=== PATIENT | female | born 1955 | race Caucasian/White ===

== ENCOUNTER → 2016-08-12 | Outpatient (CLI) | payer BC ==
[~2016-08-12] MED LIST: ALPR-411 PO; FLNIN/ NAE; FLUO20CA35 PO; MELO7.5T5 PO
== END | disposition home or self-care (01) ==
LOC: C.LABSPEC 15:46
PROVIDERS: ATTEND Internal Medicine
DX: R39.9 Unspecified symptoms and signs involving the genitourinary system (principal)

== ENCOUNTER → 2016-09-13 | Outpatient (CLI) | payer BC | END | disposition home or self-care (01) | LOC: C.LABSPEC 17:08 | PROVIDERS: ATTEND Nurse Practitioner Family | DX: N95.2 Postmenopausal atrophic vaginitis (principal) ==

== ENCOUNTER → 2016-09-26 | Outpatient (CLI) | payer BC | END | disposition home or self-care (01) | LOC: C.LABBC 12:26 | PROVIDERS: ATTEND Nurse Practitioner Family | DX: R39.9 Unspecified symptoms and signs involving the genitourinary system (principal); N39.0 Urinary tract infection, site not specified ==

== ENCOUNTER → 2017-01-30 | Outpatient (CLI) | payer BC ==
--- NOTE | 2017-01-30 09:15 | DIAGNOSTIC IMAGING REPORT ---
ULTRASOUND KIDNEYS AND BLADDER CLINICAL HISTORY: Recurrent urinary tract infection. COMPARISON STUDY: Abdominal CT dated 10/20/2008. TECHNIQUE: Real-time, grayscale, and color flow sonography of the kidneys and bladder is performed. Images are reviewed in the transverse and longitudinal planes. FINDINGS: Kidneys: The kidneys are normal in size and echotexture. The right kidney measures 10.7 x 3.9 x 4.1 cm and the left kidney measures 11.1 x 3.8 x 4.8 cm. There is no hydronephrosis. No shadowing renal calculi are identified. There is no sonographic evidence of contour deforming renal mass lesion. No perinephric fluid is identified. Bladder: The bladder is normal in appearance. Bilateral ureteral jets were seen. IMPRESSION: Unremarkable sonographic assessment of the kidneys and bladder. Electronically signed by: Haresh Cristina M.D. 01/30/2017 9:14 AM Dictated Date/Time: 01/30/2017 9:13 AM
== END ==
LOC: C.ULTR 08:32
PROVIDERS: ATTEND Nurse Practitioner Family
DX: N39.0 Urinary tract infection, site not specified (principal)

== ENCOUNTER → 2017-02-13 | Outpatient (CLI) | payer BC | END | disposition home or self-care (01) | LOC: C.LABSPEC 17:10 | PROVIDERS: ATTEND Urology | DX: N39.0 Urinary tract infection, site not specified (principal) ==

== ENCOUNTER 2018-11-24 10:35 | Observation (INO) ==
[2018-11-24] MEDS ORDERED: MoRPHine SULFATE 4 MG/ML 1 ML CARP\\VIAL IV STA ×2 (10:47→13:34)
[2018-11-24] MEDS ORDERED: ONDANSETRON INJ 2 MG/ML 2 ML VIAL IV STA (10:47)
--- NOTE | 2018-11-24 10:55 | Emergency Department Note ---
History of Present Illness General Chief complaint: Fall Stated complaint: fall/ back pain Time Seen by Provider: 11/24/18 10:37 History of Present Illness Maximum Pain Intensity: 10 This is a 63-year-old female that presents to the emergency department via ambulance with complaints of "fall/back pain". The patient states earlier today around 6 AM she was at her home, when she was descending a flight of stairs when a dog ran by her causing her to fall and she slipped landing on her buttocks and then slid down 6 steps on her back. She notes pain now in the posterior right mid back favoring the rib region. She rates the overall pain currently as a 10/10. It is worse with movement. She tried ibuprofen 2 tablets earlier with minimal relief. She is tried also icing the region with minimal relief. She denies striking the head or loss of consciousness. She denies any lower ex tremity weakness, bowel or bladder incontinence, numbness or tingling in genital region. Home Medications Home Medications Medication Instructions Recorded Confirmed Type alprazolam 0.5 mg tablet 0.5 mg PO DAILY PRN #15 tab 10/04/18 11/24/18 Rx fluoxetine 10 mg tablet 5 mg PO DAILY #45 tab 10/04/18 11/24/18 Rx methenamine hippurate 1 g PO HS 11/24/18 11/24/18 History Allergies Allergy/AdvReac Type Severity Reaction Status Date / Time gluten Allergy Unknown GI SYMPTOMS Unverified 11/24/18 11:34 codeine AdvReac Mild VOMITING Unverified 11/24/18 11:34 Past Med/Surg History Medical History Low back pain (Chronic) Depression (Chronic) Gluten enteropathy (Chronic) History of peptic ulcer (Chronic) Hyperlipidemia (Chronic) Prediabetes (Chronic) Prolonged QT interval (Chronic) Vitamin D insufficiency (Chronic) Surgical History History of tubal ligation (Chronic) Social History Preferred Language: Croatian 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 Beliefs That Will Affect Care: None Current Living Situation: Spouse Other Information That Helps Us Care for You: No Feels Safe at Home: Yes Safety Concerns: Feels Safe At This Time Smoking Status: Never smoker Hx Alcohol Use: Yes Alcohol type: wine Hx Substance Use: No Review of Systems A total of 10 systems reviewed and were otherwise negative Physical Exam Vital Signs Vital Signs - 24 hr 11/24/18 10:43 11/24/18 12:39 11/24/18 14:07 Temperature 36.6 C Temperature Source Oral Sepsis Recent Fever Within 48 Hours No Sepsis Action Taken by Nursing No Action Required Pulse Rate 68 Pulse Rate [Apical] 63 69 Respiratory Rate 18 18 18 Respiratory Depth Normal Blood Pressure 133/86 Blood Pressure [Left Arm] 132/70 128/79 Blood Pressure Mean 101 Blood Pressure Mean [Left Arm] 90 95 Pulse Oximetry 97 96 98 Oxygen Delivery Method Room Air Room Air Room Air VITAL SIGNS - Vital signs and nursing notes were reviewed. Stable and febrile. GENERAL - 63-year-old female appearing her stated age who is in no acute distress. Communicates well with provider and answers questions appropriately. SKIN - Without rashes. No meningeal or petechial rash. The skin overlying the patient's back is unremarkable. No break in the integument. No bruising. HEAD - NC/AT. EYES - PERRL with EOMI bilaterally. Sclera anicteric. EARS - No deformities of external structures noted on gross examination bilaterally. NOSE - Midline and without cyanosis. No epistaxis or purulent drainage noted. MOUTH/OROPHARYNX - Without perioral cyanosis. NECK - Neck with FROM. No C-spine tenderness. No nuchal rigidity. LUNGS - Chest wall symmetric without accessory muscle use, intercostals retractions, or central cyanosis. Normal vesicular breath sounds CTA B/L. No wheezes, rales, or rhonchi appreciated. CARDIAC - RRR with S1/S2. No murmur, rubs, or gallops appreciated. ABDOMEN - Abdominal contour normal without pulsations or visible masses. BS normoactive all four quadrants. No tenderness, palpable masses, hepatosplenomegaly, or ascites noted. EXTREMITIES - No clubbing or peripheral cyanosis. No pretibial edema present. +5/5 strength noted in UE/LE bilaterally. MUSCULOSKELETAL: There is reproducible tenderness overlying the ends right-sided thoracic spine extending into the posterior ribs and soft tissue regions. No C- spine, or L-spine tenderness. NEUROLOGIC - Cranial nerves II through XII grossly intact. PSYCH - A&Ox3 and cooperates fully with examiner. Pt is very pleasant and interacts well with examiner. Course Administered Medications Discontinued Medications Promethazine HCl (Phenergan) 12.5 mg in 50.5 mls @ 202 mls/hr IV NOW STA Stop: 11/24/18 14:14 Last Infusion: 11/24/18 14:26 Dose: 0 mls/hr Documented by: [id number] Admin: 11/24/18 14:09 Dose: 202 mls/hr Documented by: [id number] Ioversol (Optiray 320 100ml) 95 ml IV ONCE PRN PRN Reason: Interaction Checking Stop: 11/28/18 11:57 Last Admin: 11/24/18 11:59 Dose: 95 ml Documented by: [id number] Morphine Sulfate (Morphine Sulfate) 4 mg IV NOW STA Stop: 11/24/18 10:48 Last Admin: 11/24/18 10:55 Dose: 4 mg Documented by: [id number] Morphine Sulfate (Morphine Sulfate) 4 mg IV NOW STA Stop: 11/24/18 13:35 Last Admin: 11/24/18 14:09 Dose: 4 mg Documented by: [id number] Ondansetron HCl (Zofran) 4 mg IV NOW STA Stop: 11/24/18 10:48 Last Admin: 11/24/18 10:55 Dose: 4 mg Documented by: [id number] Ondansetron HCl (Zofran) Confirm Administered Dose 4 mg .ROUTE .STK-MED ONE Stop: 11/24/18 13:41 Last Admin: 11/24/18 14:00 Dose: Not Given Documented by: [id number] Medical Decision Making Laboratory Data Result diagrams: 11/24/18 10:54 11/24/18 10:54 Lab Results 11/24/18 11/24/18 11/24/18 Range/Units 10:54 10:54 11:05 WBC 8.53 (4.8-10.8) K/uL RBC 4.71 (4.2-5.4) M/uL Hgb 12.0 (12.0-16.0) g/dL POC Hgb 12.6 (12.0-16.0) g/dl Hct 36.8 L (37-47) % POC Hct 37 (37-47) % MCV 78.1 L (80-100) fL MCH 25.5 (25-34) pg MCHC 32.6 (32-36) g/dL RDW Std Deviation 45.2 (36.4-46.3) fL RDW Coeff of Janice 15.7 H (11.5-14.5) % Plt Count 245 (130-400) K/uL MPV 9.0 (7.4-10.4) fL Immature Gran % (Auto) 0.2 % Neut % (Auto) 76.1 % Lymph % (Auto) 14.2 % [place] % (Auto) 6.8 % Eos % (Auto) 2.5 % Baso % (Auto) 0.2 % Immature Gran # (Auto) 0.02 (0.00-0.02) K/uL Neut # (Auto) 6.49 (1.4-6.5) K/uL Lymph # (Auto) 1.21 (1.2-3.4) K/uL [place] # (Auto) 0.58 (0.11-0.59) K/uL Eos # (Auto) 0.21 (0-0.5) K/uL Baso # (Auto) 0.02 (0-0.2) K/uL POC Sodium 141 (135-144) mEq/L Sodium 143 (136-145) mmol/L POC Potassium 4.1 (3.3-5.0) mEq/L Potassium 4.0 (3.5-5.1) mmol/L POC Chloride 107 (101-112) mEq/L Chloride 111 H (98-107) mmol/L Carbon Dioxide 26 (21-32) mmol/L POC Total CO2 23 L (24-31) mEq/l Anion Gap 6.0 (3-11) POC Anion Gap 17.0 (16-25) mmol/L POC BUN 19 H (7-18) mg/dl BUN 18 (7-18) mg/dl Creatinine 0.79 (0.6-1.2) mg/dl POC Creatinine 0.8 (0.6-1.3) mg/dl Est Cr Clr Drug Dosing Not Reportable Est GFR ( Amer) 93.0 Est GFR (Non-Af Amer) 80.2 BUN/Creatinine Ratio 23.1 H (10-20) Glucose 96 (70-99) mg/dl POC Glucose (other) 99 (70-99) mg/dl Calcium 8.4 L (8.5-10.1) mg/dl POC Ioniz Calcium [place] 1.19 (1.12-1.32) mmol/l Total Bilirubin 0.3 (0.2-1) mg/dl AST 18 (15-37) U/L ALT 31 (12-78) U/L Alkaline Phosphatase 71 (45-117) U/L Total Protein 6.5 (6.4-8.2) gm/dl Albumin 3.5 (3.4-5.0) gm/dl Globulin 3.0 (2.5-4.0) gm/dl Albumin/Globulin Ratio 1.2 (0.9-2) Urine Color Urine Appearance (Clear) Urine pH (4.5-7.5) Ur Specific [place] (1.000-1.030) Urine Protein (Negative) Urine Glucose (UA) (Negative) Urine Ketones (Negative) Urine Blood (Negative) Urine Nitrite (Negative) Urine Bilirubin (Negative) Urine Urobilinogen (Negative) Ur Leukocyte Esterase (Negative) 11/24/18 Range/Units 13:30 WBC (4.8-10.8) K/uL RBC (4.2-5.4) M/uL Hgb (12.0-16.0) g/dL POC Hgb (12.0-16.0) g/dl Hct (37-47) % POC Hct (37-47) % MCV (80-100) fL MCH (25-34) pg MCHC (32-36) g/dL RDW Std Deviation (36.4-46.3) fL RDW Coeff of Janice (11.5-14.5) % Plt Count (130-400) K/uL MPV (7.4-10.4) fL Immature Gran % (Auto) % Neut % (Auto) % Lymph % (Auto) % [place] % (Auto) % Eos % (Auto) % Baso % (Auto) % Immature Gran # (Auto) (0.00-0.02) K/uL Neut # (Auto) (1.4-6.5) K/uL Lymph # (Auto) (1.2-3.4) K/uL [place] # (Auto) (0.11-0.59) K/uL Eos # (Auto) (0-0.5) K/uL Baso # (Auto) (0-0.2) K/uL POC Sodium (135-144) mEq/L Sodium (136-145) mmol/L POC Potassium (3.3-5.0) mEq/L Potassium (3.5-5.1) mmol/L POC Chloride (101-112) mEq/L Chloride (98-107) mmol/L Carbon Dioxide (21-32) mmol/L POC Total CO2 (24-31) mEq/l Anion Gap (3-11) POC Anion Gap (16-25) mmol/L POC BUN (7-18) mg/dl BUN (7-18) mg/dl Creatinine (0.6-1.2) mg/dl POC Creatinine (0.6-1.3) mg/dl Est Cr Clr Drug Dosing Est GFR ( Amer) Est GFR (Non-Af Amer) BUN/Creatinine Ratio (10-20) Glucose (70-99) mg/dl POC Glucose (other) (70-99) mg/dl Calcium (8.5-10.1) mg/dl POC Ioniz Calcium [place] (1.12-1.32) mmol/l Total Bilirubin (0.2-1) mg/dl AST (15-37) U/L ALT (12-78) U/L Alkaline Phosphatase (45-117) U/L Total Protein (6.4-8.2) gm/dl Albumin (3.4-5.0) gm/dl Globulin (2.5-4.0) gm/dl Albumin/Globulin Ratio (0.9-2) Urine Color Yellow Urine Appearance Clear (Clear) Urine pH 7.5 (4.5-7.5) Ur Specific [place] 1.030 (1.000-1.030) Urine Protein Negative (Negative) Urine Glucose (UA) Negative (Negative) Urine Ketones Negative (Negative) Urine Blood Negative (Negative) Urine Nitrite Negative (Negative) Urine Bilirubin Negative (Negative) Urine Urobilinogen Negative (Negative) Ur Leukocyte Esterase Negative (Negative) Imaging Data Radiologist's Impression: CT SCAN OF THE CHEST, ABDOMEN, AND PELVIS WITH IV CONTRAST; CT SCAN OF THE THORACIC SPINE WITH IV CONTRAST; CT SCAN OF THE LUMBAR SPINE WITH IV CONTRAST CLINICAL HISTORY: Trauma. Fall down steps. COMPARISON STUDY: Chest x-ray dated 02/01/2016. Renal ultrasound dated 01/30/2017. KUB dated 10/04/2017. Lumbar spine radiographs dated 01/12/2016. Abdominal CT dated 10/20/2008. TECHNIQUE: Following the IV administration of 95 of Optiray 320, CT scan of the chest, abdomen, and pelvis was performed from the thoracic inlet to the proximal femora. Images are reviewed in the axial, sagittal, and coronal planes. Additionally, CT scan of the thoracic spine is performed from the lower cervical spine to the upper lumbar spine and CT scan of lumbar spine is performed from the lower thoracic spine to the sacrum. The thoracic and lumbar spinal CT scans are reviewed in the axial, sagittal, and coronal planes. IV contrast was administered without complication. A dose lowering technique was utilized adher ing to the principles of ALARA. CT DOSE: 981.50 mGy.cm FINDINGS: CHEST: Thyroid: Imaged portions of the thyroid gland are normal in size and attenuation. Thoracic aorta: The thoracic aorta is normal in caliber and demonstrates standard 3-vessel arch anatomy. No dissection is seen. Pulmonary vasculature: The pulmonary trunk is normal in caliber. There are no filling defects identified in the central pulmonary vessels to indicate pulmonary embolus. Note that this examination was not protocoled for evaluation of the pulmonary arteries. Heart: The heart is normal in size and without pericardial effusion. Lungs and pleural spaces: There is bibasilar scarring/atelectasis. No airspace consolidation is seen typical for pneumonia. No pneumothorax is seen. A trace pleural effusion is identified on the right. The trachea and central airways are clear. Mediastinum: There is no mediastinal hematoma or lymphadenopathy. Анна: Clear. Axillae: There is no axillary lymphadenopathy. Bony thorax: See below for dedicated assessment of the thoracic spine. The skeletal structures are osteopenic. No acute/distracted rib fracture is identified. No lytic or blastic lesions are identified. THORACIC SPINE: There is a moderate acute compression fracture of T8 with moderate loss of height. No retropulsed fragments are identified. Fracture does not involve the posterior elements. There is associated paravertebral edema at this level. There is a mild chronic superior endplate compression deformity of T11. Vertebral body height is otherwise maintained throughout the thoracic spine. Alignment is preserved. The transverse and spinous processes are intact. The disc spaces are preserved. There is no evidence of large disc herniation or high-grade central canal stenosis by CT. The paraspinous soft tissues are normal in appearance. ABDOMEN AND PELVIS: Liver: The contrast-enhanced liver is normal in size, contour, and attenuation. There is no intrahepatic or ductal dilatation. The hepatic veins and portal veins are patent. Gallbladder: Unremarkable. Spleen: Normal in size and attenuation. Pancreas: Unremarkable. Adrenal glands: Unremarkable. Kidneys: The contrast enhanced kidneys demonstrate mild cortical atrophy and are without hydronephrosis. The kidneys enhance symmetrically. Abdominal vasculature: The abdominal aorta is normal in course and caliber. Bowel: The small bowel and colon are normal in course and caliber. The appendix is well-visualized and normal. Peritoneum: There is no intraperitoneal free air or abdominal ascites. There is a fat-containing umbilical hernia. Lymphadenopathy: None. Pelvic viscera: A small focus of gas within the bladder lumen is likely related to instrumentation. The bladder, uterus, and adnexa are otherwise normal as visualized. Surgical clips are noted in the pelvis bilaterally. Skeletal structures: See below for dedicated assessment of the lumbar spine. The sacrum and bony pelvis appear intact. No lytic or blastic lesions are seen. LUMBAR SPINE: Vertebral body height and alignment are maintained throughout the lumbar spine. The transverse and spinous processes are intact. Tiny anterior osteophytes are seen throughout. There is no evidence of spondylolysis. The disc spaces are preserved. A small posterior disc osteophyte complex is seen at L5- S1. There is no evidence of large disc herniation or high-grade stenosis by CT. Mild facet arthropathy is seen in the lower lumbar region. The paraspinous soft tissues are within normal limits. IMPRESSION: 1. There is a moderate acute compression fracture of T8 with associated paravertebral edema. No retropulsed fragments are identified. 2. No additional acute fracture is identified in the thoracic spine. There is a mild chronic superior endplate compression deformity of T11. 3. There is no evidence of fracture or malalignment in the lumbar spine. 4. There is no airspace consolidation or pneumothorax. 5. Trace right pleural effusion. 6. There is no evidence of solid organ injury in the abdomen or pelvis. Electronically signed by: Haresh Cristina M.D. 11/24/2018 12:38 PM MDM Narrative Patient was seen and evaluated as above in room B5. Review was performed of nursing notes and vital signs. After obtaining a thorough history and physical examination the above work up was performed. She presents to us today status post mechanical fall that occurred at home now with back pain. She also notes some pain radiating into the abdomen but is not reproducible on my examination with abdominal palpation. Given the mechanism of injury, pain in the patient's back and soft tissues that extends to the abdomen I do believe that CT scans are warranted. Patient also appears to be in a great deal of pain. IV access was established. She was given morphine for pain and Zofran for any potential side effect nausea. The CT scan resulted. There is a moderate acute compression fracture of T8 with associated paravertebral edema without retropulsed fragments. She is neurovascularly intact and has no deficits on examination. I discussed these findings with the attending physician and subsequently the on-c all acute specialist, Dr. Shirley. At this time conservative outpatient management was discussed. At this time there is no evidence of surgical emergency. The patient will be fitted with a brace in the outpatient setting. She is to not lift anything more than a few pounds, and is to not do any si gnificant bending with the spine. She is to rest. She is to stay well- hydrated. She is to call the acute specialist office first thing Monday to schedule follow-up. To help manage her pain in the outpatient setting I will prescribe a short course of oxycodone. Benefit versus risk discussed. She is to return with worsening. Additionally, the CT scan noted a small foci of gas within the bladder and there was no recent instrumentation and she does have increased urinary frequency of the past few days with history of UTI. For this reason a urinalysis was performed. Unfortunately, the patient did not do well ambulating to the bathroom and expressed great concern over going home particula rly over her safety with her injury and climbing stairs as well as her level of pain. For this reason, I talked to the hospitalist who will evaluate the patient for potential observation. Because the patient does have a prolonged QT I elected to change the antinausea meds to Phenergan. I also discussed this with Dr. Shirley, and he will see the patient in the hospital tomorrow which I think is very reasonable. Please refer to further documentation regarding her stay. Case was discussed with the attending physician. In the evaluation and treatment of this patient the following differential diagnosis entertained: Fracture, dislocation, subluxation, cauda equina syndrome, AAA, diverticulitis, appendicitis, torsion, osteomyelitis, piriformis syndrome, strain, sprain, among others, trauma. Impression & Plan Fall, Vertebral compression fracture Discharge Plan Visit Data *Final* Discharge Date/Time: 11/24/18 15:47 Chief Complaint: Fall Stated Complaint: fall/ back pain ED Provider: Gerry Eisenberg ED Midlevel Provider: Chilo bIarra Discharge Problem: Fall, Vertebral compression fracture Patient Disposition: Admitted As Inpatient Condition: Good Discharge Instructions Interventions: ED Discharge Assessment Last Done: 11/24/18 15:47
[2018-11-24 11:12] LABS: Basophils # (auto) 0.02 K/uL (0-0.2); Basophils % (auto) 0.2 %; Eosinophils # (auto) 0.21 K/uL (0-0.5); Eosinophils % (auto) 2.5 %; Hematocrit (blood only) 36.8 % (37-47); Immature Granulocytes # (auto) 0.02 K/uL (0.00-0.02); Immature Granulocytes % (auto) 0.2 %; Lymphocytes # (auto) 1.21 K/uL (1.2-3.4); Lymphocytes % (auto) 14.2 %; Mean Corpuscular Hgb Conc 32.6 g/dL (32-36); Mean Corpuscular Volume 78.1 fL (80-100); Monocytes # (auto) 0.58 K/uL (0.11-0.59); Monocytes % (auto) 6.8 %; Neutrophils # (auto) 6.49 K/uL (1.4-6.5); Neutrophils % (auto) 76.1 %; Platelet Count 245 K/uL (130-400); RDW Coefficient of Variation 15.7 % (11.5-14.5); RDW Standard Deviation 45.2 fL (36.4-46.3); Red Blood Count 4.71 M/uL (4.2-5.4); White Blood Count 8.53 K/uL (4.8-10.8)
[2018-11-24 11:19] LABS: iSTAT Creatinine 0.8 mg/dl (0.6-1.3); iSTAT Hemoglobin 12.6 g/dl (12.0-16.0); iSTAT Ionized Calcium 1.19 mmol/l (1.12-1.32); iSTAT Potassium 4.1 mEq/L (3.3-5.0)
[2018-11-24 11:29] LABS: Alanine Aminotransferase 31 U/L (12-78); Albumin Level 3.5 gm/dl (3.4-5.0); Aspartate Aminotransferase 18 U/L (15-37); BUN Creatinine Ratio 23.1 (10-20); Blood Urea Nitrogen 18 mg/dl (7-18); Calcium 8.4 mg/dl (8.5-10.1); Carbon Dioxide 26 mmol/L (21-32); Chloride 111 mmol/L (98-107); Est GFR (Non-African American) 80.2; Glucose 96 mg/dl (70-99); Sodium 143 mmol/L (136-145)
[2018-11-24 11:31] LABS: Albumin Globulin Ratio 1.2 (0.9-2); Alkaline Phosphatase 71 U/L (45-117); Bilirubin,Total 0.3 mg/dl (0.2-1); Total Protein 6.5 gm/dl (6.4-8.2)
[2018-11-24] MEDS ORDERED: IOVERSOL 100ml IV PRN (11:58)
--- NOTE | 2018-11-24 12:40 | CT Scan Report ---
CT SCAN OF THE CHEST, ABDOMEN, AND PELVIS WITH IV CONTRAST; CT SCAN OF THE THORACIC SPINE WITH IV CON TRAST; CT SCAN OF THE LUMBAR SPINE WITH IV CONTRAST CLINICAL HISTORY: Trauma. Fall down steps. COMPARISON STUDY: Chest x-ray dated 02/01/2016. Renal ultrasound dated 01/30/2017. KUB dated 10/05/19 18. Lumbar spine radiographs dated 01/12/2016. Abdominal CT dated 10/20/2008. TECHNIQUE: Following the IV administration of 95 of Optiray 320, CT scan of the chest, abdomen, and p harini was performed from the thoracic inlet to the proximal femora. Images are reviewed in the axial, sagittal, and coronal planes. Additionally, CT scan of the thoracic spine is performed from the lowe r cervical spine to the upper lumbar spine and CT scan of lumbar spine is performed from the lower th oracic spine to the sacrum. The thoracic and lumbar spinal CT scans are reviewed in the axial, sagitt al, and coronal planes. IV contrast was administered without complication. A dose lowering technique was utilized adhering to the principles of ALARA. CT DOSE: 981.50 mGy.cm FINDINGS: CHEST: Thyroid: Imaged portions of the thyroid gland are normal in size and attenuation. Thoracic aorta: The thoracic aorta is normal in caliber and demonstrates standard 3-vessel arch anato my. No dissection is seen. Pulmonary vasculature: The pulmonary trunk is normal in caliber. There are no filling defects identif ied in the central pulmonary vessels to indicate pulmonary embolus. Note that this examination was no t protocoled for evaluation of the pulmonary arteries. Heart: The heart is normal in size and without pericardial effusion. Lungs and pleural spaces: There is bibasilar scarring/atelectasis. No airspace consolidation is seen typical for pneumonia. No pneumothorax is seen. A trace pleural effusion is identified on the right. The trachea and central airways are clear. Mediastinum: There is no mediastinal hematoma or lymphadenopathy. Анна: Clear. Axillae: There is no axillary lymphadenopathy. Bony thorax: See below for dedicated assessment of the thoracic spine. The skeletal structures are os teopenic. No acute/distracted rib fracture is identified. No lytic or blastic lesions are identified. THORACIC SPINE: There is a moderate acute compression fracture of T8 with moderate loss of height. No retropulsed fragments are identified. Fracture does not involve the posterior elements. There is ass ociated paravertebral edema at this level. There is a mild chronic superior endplate compression defo rmity of T11. Vertebral body height is otherwise maintained throughout the thoracic spine. Alignment is preserved. The transverse and spinous processes are intact. The disc spaces are preserved. There i s no evidence of large disc herniation or high-grade central canal stenosis by CT. The paraspinous so ft tissues are normal in appearance. ABDOMEN AND PELVIS: Liver: The contrast-enhanced liver is normal in size, contour, and attenuation. There is no intrahepa tic or ductal dilatation. The hepatic veins and portal veins are patent. Gallbladder: Unremarkable. Spleen: Normal in size and attenuation. Pancreas: Unremarkable. Adrenal glands: Unremarkable. Kidneys: The contrast enhanced kidneys demonstrate mild cortical atrophy and are without hydronephros is. The kidneys enhance symmetrically. Abdominal vasculature: The abdominal aorta is normal in course and caliber. Bowel: The small bowel and colon are normal in course and caliber. The appendix is well-visualized a nd normal. Peritoneum: There is no intraperitoneal free air or abdominal ascites. There is a fat-containing umbi lical hernia. Lymphadenopathy: None. Pelvic viscera: A small focus of gas within the bladder lumen is likely related to instrumentation. T he bladder, uterus, and adnexa are otherwise normal as visualized. Surgical clips are noted in the pe lvis bilaterally. Skeletal structures: See below for dedicated assessment of the lumbar spine. The sacrum and bony pelv is appear intact. No lytic or blastic lesions are seen. LUMBAR SPINE: Vertebral body height and alignment are maintained throughout the lumbar spine. The tra nsverse and spinous processes are intact. Tiny anterior osteophytes are seen throughout. There is no evidence of spondylolysis. The disc spaces are preserved. A small posterior disc osteophyte complex i s seen at L5-S1. There is no evidence of large disc herniation or high-grade stenosis by CT. Mild fac et arthropathy is seen in the lower lumbar region. The paraspinous soft tissues are within normal [place] its. IMPRESSION: 1. There is a moderate acute compression fracture of T8 with associated paravertebral edema. No retro pulsed fragments are identified. 2. No additional acute fracture is identified in the thoracic spine. There is a mild chronic superior endplate compression deformity of T11. 3. There is no evidence of fracture or malalignment in the lumbar spine. 4. There is no airspace consolidation or pneumothorax. 5. Trace right pleural effusion. 6. There is no evidence of solid organ injury in the abdomen or pelvis. Electronically signed by: Haresh Cristina M.D. 11/24/2018 12:38 PM
[2018-11-24] MEDS ORDERED: ONDANSETRON INJ 2 MG/ML 2 ML VIAL ONE (13:40)
[2018-11-24 13:44] LABS: Appearance Urine Clear (Clear); Bilirubin Urine Negative (Negative); Blood Urine Negative (Negative); Color Urine Yellow; Glucose Urine UA Negative (Negative); Ketones Urine Negative (Negative); Leukocyte Esterase Urine Negative (Negative); Nitrite Urine Negative (Negative); Protein Urine Negative (Negative); Urobilinogen Urine Negative (Negative); pH Urine 7.5 (4.5-7.5)
[2018-11-24] MEDS ORDERED: PROMETHAZINE 12.5 MG/50.5 ML BAG IV STA (14:00)
[2018-11-24] MEDS ORDERED: ALPRAZolam 0.5 MG TABLET PO PRN (15:56)
[2018-11-24] MEDS ORDERED: POLYETHYLENE (MIRALAX) 17 GM PACK PO PRN (15:56)
[2018-11-24] MEDS ORDERED: ACETAMINOPHEN 325 MG TAB PO PRN (15:56)
[2018-11-24] MEDS ORDERED: ZOLPIDEM TARTRATE 5 MG TAB PO PRN (15:56)
[2018-11-24] MEDS ORDERED: MAGNESIUM HYDROXIDE SUSP 30 ML UDC PO PRN (15:56)
[2018-11-24] MEDS ORDERED: ALUMINUM/MAGNESIUM SUSP 30 ML UDC PO PRN (15:56)
--- NOTE | 2018-11-24 15:58 | History & Physical Report ---
Date of Service November 24, 2018 Assessment & Plan (1) Vertebral compression fracture: 63 years old with T8 vertebral compression fracture Admit to [facility] telemetry on observation -Vital signs every 4 hours -Keep oxygenation above 90 2/10 -incentive spirometry every 2 hours -Consulted ortho-spine Dr. RODRIGES and he will evaluate patient tomorrow a.m. -Pain management with morphine IV for now since patient is allergic to codeine but not allergic to morphine. Will also try to control pain with ketorolac 30 mg IV Q6h. -Would recommend to consult outpatient physical therapy on the discharge. -DVT prophylaxis Lovenox 40 mg daily. -Full code Present on Admission?: Yes (2) Hyperlipidemia: -Fasting lipids pending -Low-fat diet Present on Admission?: Yes (3) Prediabetes: -A1c pending -We will adjust that after he received results of A1c Present on Admission?: Yes (4) Anxiety: Stable, continue alprazolam 0.5 mg p.o. daily as needed for anxiety -Continue fluoxetine 5 mg p.o. daily for depression Present on Admission?: Yes History of Present Illness Chief Complaint: Fall and thoracic vertebra compression fracture Primary Care Provider: Galina Priets MD Patient is a 63 years old female with past medical history of glutamyl gluten enteropathy, depression, prediabetes, vitamin D insufficiency, prolonged QT interval, who presents to the emergency department via ambulance with a complaint of fall this morning and severe back pain. Patient states that earlier today around 6 AM she was at her home when she was descending a flight of stairs when a dog ran by her causing her to fall and she slipped landing landing on her buttock and then slid down 6 steps on her back. Patient complains of pain which is located in the right upper back. Patient states that pain is 10 of 10 and it is worse with movements. Patient tried to alleviate her pain with ibuprofen 2 tablets earlier this morning but that did not help she also try to alleviate the pain with ice in the region with minimal relief. Patient denies that she hit her head or loss consciousness during the fall. Patient denies any lower extremity weakness bowel or bladder bladder incontinence, numbness tingling in the rectal or inguinal area. Patient denies fever chills headache chest pain shortness of breath abdominal pain frequency or urgency. All labs were reviewed and white blood cell count is 8.53 hemoglobin of 12 hematocrit of 36.8 MCV of 79.1, RDW of 15.7, sodium of 141 potassium of 4.1 BUN 19, creatinine of 0.8 GFR of 93, AST 18 ALT 31. Chest x-ray significant for moderate acute compression of T8 with associated paravertebral edema. No re tropulsed fragments are identified. No additional acute fracture is identified in the thoracic spine. There is a mild chronic superior endplate compression deformity on T11. There is no evidence of fracture of malalignment in the lumbar spine. There is no space consolidation or pneumothorax. Trace right pleural effusion. There is no evidence of solid organ injury in the abdomen or pelvis. ER physician discussed the case with Dr. Iain Mcclellan orthopedic spine who recommended pain management and he is going to see the patient tomorrow in a.m. and evaluate her for braces and further course of management. Allergies Allergy/AdvReac Type Severity Reaction Status Date / Time gluten Allergy Unknown GI SYMPTOMS Unverified 11/24/18 11:34 codeine AdvReac Mild VOMITING Unverified 11/24/18 11:34 Home Medications Home Medications Medication Instructions Recorded Confirmed Type alprazolam 0.5 mg tablet 0.5 mg PO DAILY PRN #15 tab 10/04/18 11/24/18 Rx fluoxetine 10 mg tablet 5 mg PO DAILY #45 tab 10/04/18 11/24/18 Rx methenamine hippurate 1 g PO HS 11/24/18 11/24/18 History Past Med/Surg History Medical History Low back pain (Chronic) Depression (Chronic) Gluten enteropathy (Chronic) History of peptic ulcer (Chronic) Hyperlipidemia (Chronic) Prediabetes (Chronic) Prolonged QT interval (Chronic) Vitamin D insufficiency (Chronic) Surgical History History of tubal ligation (Chronic) Social History Feels Safe at Home: Yes Smoking Status: Never smoker Review of Systems Review of Systems: All systems reviewed & are unremarkable except as noted in HPI & below Musculoskeletal: No deformity in the right upper spine and no bruise along the spine, patient complains of the pain in the upper portion of the thoracic spine. Physical Exam Constitutional: WD/WN, vitals as above well developed, + ill appearing and + obese Eyes: PERRL, conjunctivae normal, anicteric sclerae ENMT: external ear and nose normal, oropharynx normal Neck: trachea midline, no thyromegaly Respiratory: normal respiratory effort, lungs clear to auscultation Cardiovascular: RRR, no murmur, no edema Chest (Breasts): normal inspection/palpation of breasts Gastrointestinal (Abdomen): normal bowel sounds, soft, nontender, no hepatosplenomegaly Musculoskeletal: no cyanosis or clubbing, extremities motor strength 5/5 Skin: no rashes, warm and dry Neurologic: patellar DTR's 2+ bilat, sensation intact Psychiatric: A+Ox3, euthymic affect Lymphatic: no cervical or axillary lymphadenopathy Results & Data Vital Signs (Past 12 Hours) Vital Signs Temp Pulse Pulse Resp BP BP Pulse Ox 11/24/18 14:07 69 18 128/79 98 11/24/18 12:39 63 18 132/70 96 11/24/18 10:43 36.6 C 68 18 133/86 97 Code Status & VTE Plan Code Status Full code VTE Prophylaxis Plan VTE Prophylaxis will be ordered: Yes PG Care Time/CCT Total # of Minutes Spent Total Time Spent with Patient: Total time spent is greater than 50% in coordination of care (as documented) at patient's floor/unit and/or counseling patient:
[2018-11-24 16:42] LABS: Prothrombin Time 10.5 Seconds (9.0-12.0)
[2018-11-24] MEDS: SODIUM CHLORIDE 0.9% 1000ML 1,000 ML IV SCH (17:11)
[2018-11-24] MEDS ORDERED: MoRPHine SULFATE 2 MG/ML CARP IV PRN (17:47)
[2018-11-24] MEDS ORDERED: KETOROLAC 30 MG/ML VIAL IV PRN (17:47)
[2018-11-24] MEDS ORDERED: DiphenhydrAMINE HCL 50 MG/ML VIAL IV PRN (17:51)
[2018-11-24] MEDS: METHENAMINE HIPPURATE 1 GM TAB PO SCH (20:05)
[2018-11-24] MEDS: FAMOTIDINE 20 MG in SYRINGE 3 ML IV SCH (20:05)
[2018-11-24] MEDS: DOCUSATE SODIUM/SENNA 50/8.6MG TAB PO SCH (20:07)
[2018-11-25] MEDS: SODIUM CHLORIDE 0.9% 1000ML 1,000 ML IV SCH ×2 (04:33→16:15)
[2018-11-25 06:43] LABS: Chol HDL Ratio 3; Cholesterol 193 mg/dl (0-200); HDL Cholesterol 58 mg/dl; LDL Cholesterol Calculated 114 mg/dl; Triglycerides 105 mg/dl (0-150); VLDL Cholesterol 21 mg/dl
[2018-11-25] MEDS: DOCUSATE SODIUM/SENNA 50/8.6MG TAB PO SCH ×2 (07:46→20:10)
[2018-11-25] MEDS: FLUOXETINE HCL 20 MG/5 ML PO SCH (07:46)
[2018-11-25] MEDS: FAMOTIDINE 20 MG in SYRINGE 3 ML IV SCH (07:46)
[2018-11-25] MEDS: ENOXAPARIN INJ 40 MG/0.4 ML SYR SQ SCH (07:47)
[2018-11-25] MEDS ORDERED: ONDANSETRON INJ 2 MG/ML 2 ML VIAL IV PRN (08:52)
[2018-11-25] MEDS ORDERED: ONDANSETRON INJ 2 MG/ML 2 ML VIAL IV STA (08:52)
[2018-11-25] MEDS ORDERED: CYCLOBENZAPRINE HCL 5 MG TAB PO ONE (08:55)
--- NOTE | 2018-11-25 10:42 | Family Medicine Progress Note ---
Date of Service November 25, 2018 Assessment & Plan (1) Vertebral compression fracture: Otherwise healthy 63-year-old female here with acute traumatic compression fracture of T8. Plan: -Pain control with p.o. Tylenol, Naprosyn, Flexeril. May benefit from short course of p.o. opioids on discharge. -Orthopedics consulted, no surgical indication. They will order brace and fit Monday. Acute on chronic migraine -Patient may take own Excedrin as needed -Ice PRN, Zofran as needed FEN/GI: gluten free DVT ppx: lovenox CODE STATUS: FULL DISPO: med/surg to home Monday with brace. Other ongoing medical issues: -anxiety - cont home fluoxetine daily , and alprazolam PRN -UTI ppx - cont home methenamine Supervising Physician Co-Signing Physician Notes I personally examined the patient and verified all junior points of history and exam, discussed case, and agree with decision making with Dr Trotter. Back pain reasonable whenever she is not moving. Hurts a lot whenever she is getting up and around Headache improving some but still there. Does feel it in the back of her neck a good bit. Does get migraines from time to time. Vitals noted, in general she is awake and alert pleasant no distress. HEENT normocephalic atraumatic mucous membranes are moist. Breathing unlabored no accessory muscle use good effort. Osteopathic/musculoskeletal shows right greater than left suboccipitals to be high in tone, tender, decreased range of motioninhibitory pressureimproved. Patient tolerated well Traumatic thoracic vertebral fracturepain control, time. Fortunately she seems to be reasonably well controlled with pain. Anticipate further improvement with stability once she has a brace. Question of osteoporosisshe does have long-standing vitamin D insufficiency, we will replace this, further work-up as an outpatient. That said, her trauma certainly could warrant a vertebral fracture, will defer further work-up until after discharge Migraine/tension headacheimproving. Somatic dysfunction cervical regionOMT as above. Subjective Still in quite a bit of pain this morning, received IV pain control x 1- Seen and discussed with Dr. Shirley this AM - no plan for surgery. No red flag neurologic signs denies abnormal gait, incontinence, paresthesias. Tolerating PO, but endorses nausea and had 2 bouts of emesis. Endorses bilateral headache, persistent, achy. Has history of migraine, would like to take her own Excedrin. Review of Systems Review of Systems: All systems reviewed & are unremarkable except as noted in HPI & below Physical Exam Physical Exam: Vitals noted and within normal limits GENERAL: Awake, alert to person, place, and time, in no distress. HENT: Normocephalic, atraumatic. Mucus membranes appear moist. EYES: Normal conjunctiva. Sclera non-icteric. EOMI. NECK: Supple. Full range of motion. No JVD. RESPIRATORY: Normal work of breathing. CARDIAC: Extremities warm and well perfused, 2+ posterior tibialis pulses bilaterally. ABDOMEN: non-distended. NEURO: No gross focal motor deficits noted. CN II-XII grossly in tact. SKIN: Rash not present. No jaundice noted. PSYCH: Appropriate mood and affect. Cooperative. MSK: very limited exam given antalgia. Exam as done by Graciela Trotter MD, Associate Scientist. Results & Data Vital Signs (Past 12 Hours) Vital Signs Temp Pulse Pulse Resp BP Pulse Ox 11/25/18 07:15 67 11/25/18 06:43 36.5 C 72 19 131/80 94 11/25/18 04:55 36.6 C 66 18 107/68 93 11/24/18 23:03 36.6 C 67 18 103/68 91 Laboratory Results 11/25/18 11/25/18 11/25/18 Range/Units 07:48 05:47 05:47 PT (9.0-12.0) Seconds INR (0.9-1.1) Estimat Average Glucose Pending Hemoglobin A1c Pending Triglycerides 105 (0-150) mg/dl Cholesterol 193 (0-200) mg/dl LDL Cholesterol, Calc 114 mg/dl VLDL Cholesterol, Calc 21 mg/dl HDL Cholesterol 58 mg/dl Cholesterol/HDL Ratio 3 25-OH Vitamin D Total 24.0 L (30-100) ng/ml Medications Administered Current Inpatient Medications Acetaminophen (Tylenol) 650 mg PO Q4H PRN PRN Reason: pain/fever Stop: 12/24/18 15:55 Last Admin: 11/25/18 06:56 Dose: 650 mg Documented by: Al Hydrox/Mg Hydrox/Simethicone (Maalox) 30 ml PO Q6H PRN PRN Reason: Dyspepsia Stop: 12/24/18 15:55 Alprazolam (Xanax) 0.5 mg PO DAILY PRN PRN Reason: anxiety Stop: 12/24/18 15:55 Diphenhydramine HCl (Benadryl) 25 mg IV Q6H PRN PRN Reason: Itching Stop: 12/24/18 17:59 Enoxaparin Sodium (Lovenox) 40 mg SQ QAM [facility] Stop: 12/25/18 08:59 Last Admin: 11/25/18 07:47 Dose: 40 mg Documented by: Fluoxetine HCl (Prozac) 5 mg PO DAILY [facility] Stop: 12/25/18 08:59 Last Admin: 11/25/18 07:46 Dose: 5 mg Documented by: Sodium Chloride (Nss 1000ml) 1,000 mls @ 80 mls/hr IV .[id number] [facility] Stop: 12/24/18 16:31 Last Admin: 11/25/18 04:33 Dose: 80 mls/hr Documented by: Magnesium Hydroxide (Milk Of Magnesia) 30 ml PO Q6H PRN PRN Reason: Constipation Stop: 12/24/18 15:55 Methenamine Hippurate (Urex) 1 gm PO HS [facility] Stop: 11/26/18 20:59 Last Admin: 11/24/18 20:05 Dose: 1 gm Documented by: Morphine Sulfate (Morphine Sulfate) 2 mg IV Q3H PRN PRN Reason: Pain Stop: 12/08/18 17:46 Last Admin: 11/25/18 10:06 Dose: 2 mg Documented by: Naproxen (Naprosyn) 375 mg PO BID [facility] Stop: 12/25/18 08:59 Last Admin: 11/25/18 11:07 Dose: Not Given Documented by: Ondansetron HCl (Zofran) 4 mg IV Q4H PRN PRN Reason: Nausea Stop: 12/25/18 08:51 Last Admin: 11/25/18 12:44 Dose: 4 mg Documented by: Oxycodone/Acetaminophen (Percocet 5mg/325mg) 1 tab PO Q4H PRN PRN Reason: Moderate Pain Stop: 12/08/18 17:48 Polyethylene Glycol (Miralax Powder Packet) 17 gm PO DAILY PRN PRN Reason: Constipation Stop: 12/24/18 15:55 Senna/Docusate Sodium (Senokot S) 1 tab PO BID [facility] Stop: 12/24/18 20:59 Last Admin: 11/25/18 07:46 Dose: 1 tab Documented by: Zolpidem Tartrate (Ambien) 5 mg PO HSZ PRN PRN Reason: Sleep Stop: 12/24/18 15:55 PG Care Time/CCT Total # of Minutes Spent Total Time Spent with Patient: Total time spent is greater than 50% in coordination of care (as documented) at patient's floor/unit and/or counseling patient: Resident Activity Tracking Resident Involvement: Resident Care Provided Care Provided: Adult Hospital Medicine (1) Vertebral compression fracture Encounter type: initial encounter Fracture of vertebra location: thoracic Thoracic vertebra fracture level: T8 Qualified Code(s): S22.060A - Wedge compression fracture of T7-T8 vertebra, initial encounter for closed fracture
[2018-11-25] MEDS: NAPROXEN 375 MG TAB PO SCH ×2 (11:07→20:10)
--- NOTE | 2018-11-25 11:51 | Consultation Report ---
DATE OF CONSULTATION: 11/24/2018 CHIEF COMPLAINT: Back pain. HISTORY OF PRESENT ILLNESS: Elvira is pleasant. She is 63. Home related injury yesterday, falling on the stairway. She was descending the stairs, a dog caused her to trip up so to speak, she fell her back and buttock and then fell down several stairs at that time. This injury was yesterday. She came in last evening after failure of conservative care at home including ibuprofen with significant pain. I was called. Initially, we were going to send the patient home with both pain medication. Evidently, she was a little too painful to be discharged home and was admitted to the medical service and for me to consulting with her. PAST MEDICAL HISTORY: Positive for hyperlipidemia, prediabetes, anxiety. ALLERGIES: CODEINE, GLUTEN. MEDICATIONS: Listed. She also has a history of peptic ulcer disease and vitamin D insufficiency. PAST SURGICAL HISTORY: Tubal ligation. REVIEW OF SYSTEMS: Denies any blurred vision, double vision, tinnitus, vertigo, head trauma or extremity issues. OBJECTIVE: GENERAL: She is alert, oriented. CARDIOVASCULAR: Regular rate and rhythm. VITAL SIGNS: Blood pressure controlled. NEUROLOGICAL: Intact, 5/5 strength. SKIN: I did not inspect her skin because of her pain. IMAGES: Reviewed. She has some degenerative changes in the mid thoracic area. She has a T8 compression fracture, albeit mild, but these can be painful. IMPRESSION: Mild T8 compression fracture with significant pain. PLAN: Pain control done here by our staff. I agree with everything that has been going on now including the morphine and Toradol. I will order a brace for her. The brace will be fitted probably tomorrow. Usually, we cannot get a brace on a Monday morning or afternoon. I anticipate her and she should be stable to leave the acute care setting here at [facility] tomorrow which will be Monday either home with home care or home with her family or even consider inpatient rehab or nursing facility.
[2018-11-25] MEDS: OXYCODONE/ACETAMINOPHEN 5mg/325mg TAB PO PRN (18:06)
[2018-11-25] MEDS: METHENAMINE HIPPURATE 1 GM TAB PO SCH (20:10)
[2018-11-26] MEDS: SODIUM CHLORIDE 0.9% 1000ML 1,000 ML IV SCH (04:49)
[2018-11-26 06:42] LABS: Estimated Average Glucose 117 mg/dl; Hemoglobin A1C 5.7 % (4.5-5.6)
[2018-11-26] MEDS: OXYCODONE/ACETAMINOPHEN 5mg/325mg TAB PO PRN ×2 (07:03→13:53)
[2018-11-26] MEDS: DOCUSATE SODIUM/SENNA 50/8.6MG TAB PO SCH (08:08)
[2018-11-26] MEDS: NAPROXEN 375 MG TAB PO SCH (08:09)
[2018-11-26] MEDS: FLUOXETINE HCL 20 MG/5 ML PO SCH (08:10)
[2018-11-26] MEDS: ENOXAPARIN INJ 40 MG/0.4 ML SYR SQ SCH (08:10)
--- NOTE | 2018-11-26 17:02 | Discharge Summary ---
Date of Service November 26, 2018 Admission HPI Per Admitting Provider Patient is a 63 years old female with past medical history of glutamyl gluten enteropathy, depression, prediabetes, vitamin D insufficiency, prolonged QT interval, who presents to the emergency department via ambulance with a complaint of fall this morning and severe back pain. Patient states that earlier today around 6 AM she was at her home when she was descending a flight of stairs when a dog ran by her causing her to fall and she slipped landing landing on her buttock and then slid down 6 steps on her back. Patient complains of pain which is located in the right upper back. Patient states that pain is 10 of 10 and it is worse with movements. Patient tried to alleviate her pain with ibuprofen 2 tablets earlier this morning but that did not help she also try to alleviate the pain with ice in the region with minimal relief. Patient denies that she hit her head or loss consciousness during the fall. Patient denies any lower extremity weakness bowel or bladder bladder incontinence, numbness tingling in the rectal or inguinal area. Patient denies fever chills headache chest pain shortness of breath abdominal pain frequency or urgency. All labs were reviewed and white blood cell count is 8.53 hemoglobin of 12 hematocrit of 36.8 MCV of 79.1, RDW of 15.7, sodium of 141 potassium of 4.1 BUN 19, creatinine of 0.8 GFR of 93, AST 18 ALT 31. Chest x-ray significant for moderate acute compression of T8 with associated paravertebral edema. No retropulsed fragments are identified. No additional acute fracture is identified in the thoracic spine. There is a mild chronic superior endplate compression deformity on T11. There is no evidence of fracture of malalignment in the lumbar spine. There is no space consolidation or pneumothorax. Trace right pleural effusion. There is no evidence of solid organ injury in the abdomen or pelvis. ER physician discussed the case with Dr. Iain Mcclellan orthopedic spine who recommended pain management and he is going to see the patient tomorrow in a.m. and evaluate her for braces and further course of management. Admission Exam Per Admitting Provider Constitutional: WD/WN, vitals as above well developed, + ill appearing and + obese Eyes: PERRL, conjunctivae normal, anicteric sclerae ENMT: external ear and nose normal, oropharynx normal Neck: trachea midline, no thyromegaly Respiratory: normal respiratory effort, lungs clear to auscultation Cardiovascular: RRR, no murmur, no edema Chest (Breasts): normal inspection/palpation of breasts Gastrointestinal (Abdomen): normal bowel sounds, soft, nontender, no hepatosplenomegaly Musculoskeletal: no cyanosis or clubbing, extremities motor strength 5/5 Skin: no rashes, warm and dry Neurologic: patellar DTR's 2+ bilat, sensation intact Psychiatric: A+Ox3, euthymic affect Lymphatic: no cervical or axillary lymphadenopathy Principal Diagnosis Compression Fracture T8 Discharge Exam Constitutional: WD/WN, vitals as above well developed, Comfortable and cooperative Eyes: PERRL, conjunctivae normal, anicteric sclerae ENMT: external ear and nose normal, oropharynx normal Neck: trachea midline, no thyromegaly Respiratory: normal respiratory effort, lungs clear to auscultation Cardiovascular: RRR, no murmur, no edema Chest (Breasts): normal inspection/palpation of breasts Gastrointestinal (Abdomen): normal bowel sounds, soft, nontender, no hepatosplenomegaly Musculoskeletal: Back pain over thoracic spinewith any movement but tolerable Able to ambulate without too much distress Skin: no rashes, warm and dry Neurologic: patellar DTR's 2+ bilat, sensation intact Psychiatric: A+Ox3, euthymic affect Lymphatic: no cervical or axillary lymphadenopathy Discharge Data Allergies Allergy/AdvReac Type Severity Reaction Status Date / Time gluten Allergy Unknown GI SYMPTOMS Unverified 11/24/18 11:34 codeine AdvReac Mild VOMITING Unverified 11/24/18 11:34 Consultations 11/24/18 14:02 ED Decision to Admit Stat 11/25/18 08:06 Consult Orthopedic Surgery Routine Ordered Studies 11/24/18 10:47 CT abd pelvis IV con only Stat CT chest w con Stat CT lumbar spine w con Stat CT thoracic spine w con Stat Hospital Course (1) Vertebral compression fracture: Otherwise healthy 63-year-old female here with acute traumatic compression fracture of T8. Plan: Patient presented after completely mechanical fall with compression fracture of T8 seen on CT No other acute fractures appreciated No evidence of osteoporosis on imaging but workup with DXA scan as outpatient reasonable. Pain control with p.o. Tylenol, Naproxen and percocet Is not having muscle spasms at time of discharge so will try to avoid flexeril Seen by Dr. Shirley who fitted patient with a back brace. Patient feels brace is stabilizing and makes motion much more comfortable. Will follow up with primary care physician and Dr. Shirley ortho in coming weeks. Total Time Total Time Spent Total Time Spent (In Minutes): 22 Discharge Plan Discharge Items Patient Disposition: Home - Self-Care Reason For Visit: VERTEBRAL FRACTURE Discharge Diagnosis: Vertebral compression fracture of T8 Condition: Good Discharge Goals: Decrease discomfort and Improve function Activity: Per 'Additional Instructions' section Non-emergency contact: Primary Care Provider and Specialist Call non-emergency contact if: you have any medication questions, your symptoms worsen and your pain is not controlled Follow-up/Referrals: Galina Priest MD [Primary Care Provider] - 12/05/18 11:20 am (A follow up appt. has been made for you with Dr. Galindo on 12/05 at 11:20am.) Iain Shirley DO [Surgeon] - (Dr. Shirley's office will call with appt.) Diet: Regular Addtl Provider Instructions: Ms. Newman, It was our pleasure to treat you for your compression fracture of your T8 vertebrae. Moving forward it will be important for you to continue to stay mobile and functional at home. After you were evaluated by PT and OT and your brace was placed we believe you will be safe to return home. It may take over a month before you are pain free, but if we can control the pain enough to take care of all the activities of daily living that will be our goal. To meet that end we will send you home with a script for percocet to be taken as needed for pain. As percocet can cause constipation we recommend taking stool softeners and miralax while on this medication to prevent constipation. This is something that's easier to stay ahead of than play catch up on so when you go to fill your script for percocet picking up stool softeners would be a good idea. I have contacted the nurse navigator to arrange an appointment with Dr. Shirley and Dr. Bolton in the next couple of weeks. Prescriptions: New oxycodone-acetaminophen [Percocet] 5-325 mg Tablet 1 tab PO Q4H PRN (Reason: pain) Qty: 25 RF: 0 oxycodone-acetaminophen [Percocet] 5-325 mg tablet 1 tab PO Q6H Qty: 14 RF: 0 Continued fluoxetine 10 mg tablet 5 mg PO DAILY Qty: 45 RF: 3 alprazolam 0.5 mg tablet 0.5 mg PO DAILY PRN (Reason: anxiety) Qty: 15 RF: 0 methenamine hippurate 1 gram tablet 1 g PO HS RF: 0 Stand-Alone Forms: [facility] Discharge Orders: Discharge Order (Routine); Ordered 11/26/18 Ordered By: Davis Fournier Admission Data Admit Date/Time: 11/24/18 15:33 Attending Provider: Octavio Spencer Admit Provider: Laya Preciado Primary Care Provider: Galina Priest V. Other Providers: Iain Shirley ; Laya Preciado Service: Telemetry Medical Other Interventions: Discharge Summary Assessment (RN) Last Done: 11/26/18 17:01 DC Date/Time DO NOT enter until pt leaves facility: 11/26/18 17:42 Supervising Physician Co-Signing Physician Notes ATTENDING NOTE I saw the patient current the resident physician and confirmed junior portion of the history and physical exam. Agree with the impression and plan as noted above. The patient's pain control is improved today. She was fit with a brace and is comfortable with discharge. She understands that there will be a gradual return to activity and work, and we discussed how this can vary injury to injury in person to person, but she should note an improvement with each successive day. Medications reviewed. Follow-up as noted. Resident Activity Tracking Resident Involvement: Resident Care Provided Care Provided: Adult Hospital Medicine
== END 2018-11-26 17:42 | disposition home or self-care (01) ==
LOC: 2N 10:35 → ED 10:35 → SUATTDRO 15:33 → 2N 15:47